=== PATIENT | female | born 1985 | race Two or more races ===

== ENCOUNTER 2023-01-29 19:50 | Emergency (ER) | payer OTHER ==
[~2023-01-29] VITALS: Ht 175.3 cm; Wt 82.0 kg
[2023-01-29 19:56] VITALS: BP 131/84
== END 2023-01-29 21:55 ==
LOC: ER 19:50
DX: S40.212A Abrasion of left shoulder, initial encounter (principal); S60.212A Contusion of left wrist, initial encounter; Y08.89XA Assault by other specified means, initial encounter; Y93.89 Activity, other specified; Y92.89 Other specified places as the place of occurrence of the external cause; Y99.8 Other external cause status
CPT/HCPCS: 29125; 73030; 73100; 73120; 99284